=== PATIENT | female | born 1955 | race Caucasian/White ===

== ENCOUNTER → 2020-07-27 | Outpatient (CLI) | payer MEDICARE, OTHER ==
[~2020-07-27] MED LIST: ALEVE220 M1 PO; ASPIRIN81 M2 PO; LEVOTHYROXIN0.025 MG PO; OMEPRAZOLE; PROTONIX40 M2 PO; ZOLOFT100 MG PO
== END ==
LOC: M.LAB 09:56
PROVIDERS: ATTEND Internal Medicine Gastroenterology
DX: Z01.812 Encounter for preprocedural laboratory examination (principal); Z20.828 Contact with and (suspected) exposure to other viral communicable diseases; K21.9 Gastro-esophageal reflux disease without esophagitis; R13.10 Dysphagia, unspecified; R10.13 Epigastric pain; Z86.010 Personal history of colon polyps